=== PATIENT | male | born 1990 | race Caucasian/White ===

== ENCOUNTER 2017-05-11 02:45 | Emergency (ER) | payer OTHER ==
[~2017-05-11] VITALS: Ht 172.7 cm; Wt 80.0 kg
[2017-05-11 02:53] VITALS: BP 141/83; PULSE 110; RESP 16; TEMP 98.6; O2SAT 98
[2017-05-11] MEDS ORDERED: HALOPERIDOL LACTATE 5 MG/ML AMP IM ONE (03:00)
[2017-05-11] MEDS ORDERED: diphenhydrAMINE HCL 50 MG/ML VIAL IM ONE (03:00)
--- NOTE | 2017-05-11 03:33 | PD ---
HPI Chief Complaint: Alcohol/Drug Intoxication Time Seen by Provider: 03:28 Travel History International Travel<30 days: No Contact w/Intl Traveler<30days: No Traveled to known affect area: No History of Present Illness HPI 26-year-old white male presents to emergency department by PD under a [place] act due to alcohol intoxication. The patient was found walking down the middle the street intoxicated. The patient was unable to care for himself and therefore is brought to the hospital. The patient had apparently suffered an injury to his left arm sometime in the last day or 2. The patient states that he was seen at [facility] and was discharged. The surrounding events of his injury or hard to follow due to his alcohol intoxication. I did meaningful history is not obtainable at this time. The patient is uncooperative. His level of intoxication is inhibiting his ability to care and assist in his evaluation today. PFSH Past Medical History Medical History: Denies Significant Hx Diminished Hearing: No Tetanus Vaccination: < 5 Years Past Surgical History Surgical History: No Previous Surgery Social History Alcohol Use: Yes (WEEKENDS) Tobacco Use: Yes (10 CIGS/DAY) Substance Use: Yes (MARIJUANA OCC) Allergies-Medications (Allergen,Severity, Reaction): Coded Allergies: No Known Allergies (Unverified , 05/11/17) Reported Meds & Prescriptions Reported Meds & Active Scripts Active No Active Prescriptions or Reported Medications Review of Systems ROS Limitations: Intoxication Except as stated in HPI: all other systems reviewed are Neg Physical Exam Narrative GENERAL: This is a well-nourished, well-developed patient, in no apparent distress. Patient smells of EtOH and appears intoxicated. SKIN: No rashes, ecchymoses or lesions. Warm and dry. HEAD: Atraumatic. Normocephalic. EYES: PERRL, EOMI, no discharge or injection. No scleral icterus. EARS: Clear NOSE: Nasal turbinates appear normal. THROAT: Mucosa pink and moist. Airway patent. NECK: Trachea midline. supple, moves head freely. LUNGS: Clear to auscultation. CV: Regular in rhythm. ABDOMEN: Soft nontender. EXT: Examination the left upper extremity reveals swelling in the elbow down into the forearm and wrist. There is a large amount of volar ecchymosis the proximal forearm. There is no pain or deformity of the clavicle or shoulder. The patient is able to flex and extend and supinate pronate his elbow freely. There is no pain in the wrist. He is able to extend and flex his wrist and condenser tester. He has intact median/ulnar/ulnar nerves. He has good distal pulses. Patient does appear to have some slight weakness in the bicep compared to the contralateral side. The right upper extremity is unremarkable. The lower extremities are unremarkable. Data Data Last Documented VS Vital Signs Date Time Temp Pulse Resp B/P Pulse Ox O2 Delivery O2 Flow Rate FiO2 05/11/17 02:53 98.6 110 16 141/83 98 Orders Haloperidol Inj (Haldol Inj) (05/11/17 03:00) Diphenhydramine Inj (Benadryl Inj) (05/11/17 03:00) Elbow, Complete (4 Vws) (05/11/17 03:07) Forearm (2vws) (05/11/17 03:07) MDM Medical Decision Making Medical Screen Exam Complete: Yes Emergency Medical Condition: Yes Medical Record Reviewed: Yes Interpretation(s) Last 24 hours Impressions Radius/Ulna X-Ray 05/11/17306 Signed Impressions: Service Date/Time: April 03:25 - CONCLUSION: Elbow joint effusion in the setting of recent trauma suggests fracture. Fracture line is not identified. García Jordan MD Elbow X-Ray 05/11/17306 Signed Impressions: Service Date/Time: April 03:27 - CONCLUSION: Elbow joint effusion suggesting fracture until proven otherwise in the setting of recent trauma. No fracture line identified. García Jordan MD Differential Diagnosis Differential diagnoses: Alcohol intoxication, substance abuse, electrolyte abnormality, malingering, fracture, sprain, muscle tear Narrative Course The patient's alcohol intoxication is inhibiting his ability to allow proper evaluation and treatment. The patient is medicated with Haldol 5 mg and Benadryl 50 mg IM. Once the patient becomes more cooperative we will obtain x- rays of the elbow and forearm. X-ray of the left elbow reveals positive fat pad signs consistent with a occult fracture. X-ray of the forearm is negative. Patient's x-ray reveals a joint effusion. This may also be associated with a ligamentous type injury. Occult fracture cannot be completely excluded. The patient moves his arm freely. This is alcohol intoxication, left elbow pain rule out occult fracture versus ligamentous injury Diagnosis Primary Impression: Alcohol intoxication Qualified Code: F10.920 - Alcohol intoxication, uncomplicated Additional Impression: left elbow pain rule out occult fracture versus ligament injury Patient Instructions: General Instructions Additional Instructions: Rest. Increase fluids. Avoid alcohol. Avoid illegal substances. Follow-up with [facility] for detox. Do not operate a car or any heavy machinery under the influence of alcohol or drugs. Follow-up with a medical doctor this week. Follow-up with an orthopedist in next 3-5 days. Return to the ER for emergencies Med/Other Pt SpecificInfo: No Meds Exist/No RX given Scripts No Active Prescriptions or Reported Meds Disposition: 01 DISCHARGE HOME Condition: Stable Alexandru Watson May 11, 2017 03:33
--- NOTE | 2017-05-11 04:03 | RADRPT ---
EXAM DATE/TIME: 05/11/2017 03:25 [facility] COMPARISON: ELBOW LEFT COMPLETE (4 VWS), May 11, 2017, 3:27. INDICATIONS : Left forearm pain after fall. MEDICAL HISTORY : None. SURGICAL HISTORY : None. ENCOUNTER: Initial ACUITY: 1 day PAIN SCORE: 7/10 LOCATION: Left distal forearm FINDINGS: 2 views left forearm. Bulging anterior fat-pad and visible posterior fat-pad indicating elbow joint e ffusion. In the setting of acute trauma this indicates fracture until proven otherwise. Fracture line is not identified. A small rounded calcification in the region of the proximal common extensor tendo n. CONCLUSION: Elbow joint effusion in the setting of recent trauma suggests fracture. Fracture line is not identifi ed. García Jordan MD on May 11, 2017 at 3:59 Board Certified Radiologist. This report was verified electronically.
--- NOTE | 2017-05-11 04:04 | RADRPT ---
EXAM DATE/TIME: 05/11/2017 03:27 [facility] COMPARISON: No previous studies available for comparison. INDICATIONS : Left elbow pain after fall. MEDICAL HISTORY : None. SURGICAL HISTORY : None. ENCOUNTER: Initial ACUITY: 1 day PAIN SCORE: 7/10 LOCATION: Left elbow FINDINGS: 4 views of the left elbow. Left elbow joint effusion noted. A line within normal limits. No fracture line identified. Rounded calcific density in the region of the proximal common extensor tendon measur ing 2 mm. CONCLUSION: Elbow joint effusion suggesting fracture until proven otherwise in the setting of recent trauma. No f racture line identified. García Jordan MD on May 11, 2017 at 4:01 Board Certified Radiologist. This report was verified electronically.
[2017-05-11 05:00] VITALS: BP 110/63; PULSE 97; RESP 16; O2SAT 96
[2017-05-11 10:11] VITALS: BP 133/71
== END 2017-05-11 10:29 | disposition home or self-care (01) ==
LOC: NEPD 02:45
DX: F10.920 Alcohol use, unspecified with intoxication, uncomplicated (principal); M25.522 Pain in left elbow; F17.210 Nicotine dependence, cigarettes, uncomplicated
CPT/HCPCS: 29105; 73080; 73090; 96372; 99284; J1200; J1630